=== PATIENT | female | born 2000 | race American Indian/Alaskan Native ===

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

== ENCOUNTER 2020-11-02 11:18 | Inpatient (IN) | payer MEDICAID, OTHER ==
[2020-11-02] MEDS ORDERED: TERBUTALINE 1 MG/1 ML INJ SUB-Q PRN (12:00)
[2020-11-02] MEDS ORDERED: ePHEDrine SULFATE 50 MG/1 ML INJ IV PRN ×2 (12:00→14:43)
[2020-11-02] MEDS ORDERED: AMPICILLIN/NS 2 GM/100 ML 2 GM/100 ML BAG IV ONE (12:00)
[2020-11-02] MEDS ORDERED: OXYTOCIN DRIP 30 UNITS/500 ML BAG IV SCH ×2 (12:00→16:00)
[2020-11-02] MEDS ORDERED: LIDOCAINE (2%) 20 MG/1 ML VIAL 20 ML MDV INFILTRATI ONE (12:00)
[2020-11-02] MEDS ORDERED: LACTATED RINGERS 1,000 ML IV ONE (12:03)
--- NOTE | 2020-11-02 12:06 | History and Physical Report ---
History of Present Illness Date of examination: 11/02/20 Date of admission: 11/02/2020 Chief complaint: Contractions History of present illness: 20 year old presents to L&D with complaint of contractions since 04:00 this morning. Patient denies vaginal bleeding or leaking of fluid. Patient reports active movement. Patient states she received care in [place] and just moved to [place]; states her last visit was last week. No records are available but will request records. Patient reports her EDC is 11/19/2020. Patient reports that this started out as a twin but states that she lost one of the twins at 16 weeks gestation. She also reports a history of 4 first trimester miscarriages. Reports she had chlamydia early in this but states that it was treated and cured. Patient denies health problems. No current medications. No known drug allergies. Negative surgical history. Nonsmoker, nondrinker, denies drugs. Denies abuse. labs were drawn upon admission and ultrasound was ordered. 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 denies: abnormal PAP smear, gonorrhea, hepatitis B, hepatitis C, herpes, HIV, syphilis, trichomonas Family/Genetic History: diabetes, hypertension, cancer, Down's syndrome (aunt's child has Down syndrome) Social history: single, full code. denies: smoking, alcohol abuse, prescription drug abuse, IV drug use - Obstetrical History Expected Date of Delivery: 11/19/20 Actual Gestation: 37 Week(s) 4 Day(s) : 5 Para: 0 Hx # Term Pregnancies: 0 Number of Pregnancies: 0 Spontaneous Abortions: 4 Induced : 0 Number of Living Children: 0 Medications and Allergies Allergies Allergy/AdvReac Type Severity Reaction Status Date / Time No Known Allergies Allergy Verified 05/13/18 20:19 Home Medications Medication Instructions Recorded Confirmed Last Taken Type HYDROcodone/APAP 5-325 [[place] 1 each PO Q6HR PRN #12 tablet 05/14/18 Unknown Rx 5/325] Nitrofurantoin Monohyd/M-Cryst 100 mg PO BID #14 capsule 05/14/18 Unknown Rx [Macrobid 100 mg Capsule] Active Meds: Active Medications Ephedrine Sulfate (Ephedrine Sulfate 50 Mg/1 Ml Inj) 10 mg IV Q2M PRN PRN Reason: Hypotension Lactated Ringer's (Lactated Ringers) 1,000 mls @ 125 mls/hr IV DIRECT [place] Oxytocin/Sodium Chloride (Pitocin/Ns 30 Unit/500ml) 30 units in 500 mls @ 40 mls/hr IV TITR [place]; Protocol Ampicillin Sodium (Ampicillin/Ns 2 Gm/100 Ml) 2 gm in 100 mls @ 100 mls/hr IV ONCE ONE; Protocol Stop: 11/02/20 12:59 Ampicillin Sodium (Ampicillin/Ns 1 Gm/50 Ml) 1 gm in 50 mls @ 100 mls/hr IV Q4H [place]; Protocol Lactated Ringer's (Lactated Ringers) 1,000 mls @ 999 mls/hr IV BOLUS ONE Stop: 11/02/20 13:03 Terbutaline Sulfate (Terbutaline 1 Mg/1 Ml Inj) 0.25 mg SUB-Q ONCE PRN PRN Reason: Hyperstimulation/Hypertonicity Review of Systems All systems: negative (contractions) - Vital Signs Vital signs: Vital Signs Temp Pulse Resp BP Pulse Ox 98.8 F 95 H 20 115/67 98 11/02/20 11:24 11/02/20 11:24 11/02/20 11:24 11/02/20 11:24 11/02/20 11:24 Temp Pulse Resp BP Pulse Ox 98.8 F 105 H 20 115/67 100 11/02/20 11:24 11/02/20 12:05 11/02/20 11:24 11/02/20 11:25 11/02/20 12:05 - Physical Exam Abdomen: Positive: normal appearance, soft. Negative: distention, tenderness, guarding, rigidity Genitourinary (Female): Positive: normal external genitalia, normal perenium. N egative: perineal/vulvar lesions Vagina: Positive: normal moisture Uterus: Positive: enlarged. Negative: tender Anus/Rectum: Positive: normal perianal skin Extremities: Positive: normal. Negative: tenderness, edema - Obstetrical FHR: category 2 Uterine Contraction Monitor Mode: External Cervical Dilatation: 4.5 Cervical Effacement Percentage: 70 station: -2 Uterine Contraction Pattern: Regular Uterine Contraction Intensity: Moderate Results All other labs normal. Assessment and Plan A: at 37 weeks, 4 days gestation. Active labor. GBS unknonwn. No records available. P: Admit. Continuous EFM. labs, ultrasound (for EGA/EDC and location/integrity of placenta), drug screen. Request records from [place]. GBS prophylaxis. Anticipate vaginal .
[2020-11-02] MEDS ORDERED: fentaNYL 100 MCG/2 ML INJ IV ONE (13:04)
[2020-11-02] MEDS ORDERED: fentaNYL 100 MCG/2 ML INJ ONE (13:08)
[2020-11-02 13:59] LABS: Hematocrit 37.9 % (30.3-42.9); Hemoglobin 13.1 gm/dl (10.1-14.3); Mean Corpuscular HGB Conc 35 % (30-34); Mean Corpuscular Volume 86 fl (79-97); Platelet Count 199 K/mm3 (140-440); Red Blood Count 4.38 M/mm3 (3.65-5.03); Red Cell Distribution Width 13.4 % (13.2-15.2)
[2020-11-02 14:04] LABS: Hepatitis C Virus Antibody Non-Reactive (NonReactive)
[2020-11-02] MEDS ORDERED: NALOXONE 2 MG/2 ML INJ IV PRN (14:43)
--- NOTE | 2020-11-02 14:45 | Anesthesia Consultation ---
Anesthesia Consult and Med Hx Date of service: 11/02/20 - Airway Anesthetic Teeth Evaluation: Good ROM Head & Neck: Adequate Mental/Hyoid Distance: Adequate Mallampati Class: Class II Intubation Access Assessment: Probably Good - Pulmonary Exam CTA: Yes - Cardiac Exam Cardiac Exam: RRR - Pre-Operative Health Status ASA Pre-Surgery Classification: ASA2 Proposed Anesthetic Plan: Epidural - Pulmonary Hx Asthma: Yes (INHALER/ALBUTEROL, ATTACK A MONTH OR 2 AGO) - Cardiovascular System Hx Hypertension: No - Central Nervous System Hx Seizures: No Hx Psychiatric Problems: No - Endocrine Hx Renal Disease: No Hx Hypothyroidism: No Hx Hyperthyroidism: No - Hematic Hx Sickle Cell Disease: No - Other Systems Hx Alcohol Use: No
--- NOTE | 2020-11-02 14:59 | Progress Note ---
Subjective - Subjective Date of service: 11/02/20 Interval history: late entry SROM clear at 14:00 [id number]%/-1 [place]: Q2 minutes FHT 150 baseline, minimal variability,+ve variables [facility] anesthesia notified for epidural Mackenzie Pichardo MD Objective - Vital Signs Vital Signs: Vital Signs - 12hr 11/02/20 11/02/20 11/02/20 11:24 11:25 11:27 Temperature 98.8 F Pulse Rate 95 H 96 H 83 Respiratory 20 Rate Blood Pressure 115/67 Blood Pressure 115/67 [Right] O2 Sat by Pulse 98 97 Oximetry 11/02/20 11/02/20 11/02/20 11:32 11:37 11:50 Temperature Pulse Rate 92 H 87 97 H Respiratory Rate Blood Pressure Blood Pressure [Right] O2 Sat by Pulse 98 99 99 Oximetry 11/02/20 11/02/20 11/02/20 11:55 12:00 12:05 Temperature Pulse Rate 110 H 101 H 105 H Respiratory Rate Blood Pressure Blood Pressure [Right] O2 Sat by Pulse 100 99 100 Oximetry 11/02/20 11/02/20 11/02/20 12:10 12:15 12:20 Temperature Pulse Rate 98 H 114 H 74 Respiratory Rate Blood Pressure Blood Pressure [Right] O2 Sat by Pulse 97 100 99 Oximetry 11/02/20 11/02/20 11/02/20 12:25 12:30 12:35 Temperature Pulse Rate 109 H 102 H 98 H Respiratory Rate Blood Pressure Blood Pressure [Right] O2 Sat by Pulse 96 100 99 Oximetry 11/02/20 11/02/20 11/02/20 12:40 12:45 12:55 Temperature Pulse Rate 111 H 90 105 H Respiratory Rate Blood Pressure Blood Pressure [Right] O2 Sat by Pulse 99 100 100 Oximetry 11/02/20 11/02/20 11/02/20 12:56 13:00 13:05 Temperature Pulse Rate 100 H 120 H 112 H Respiratory Rate Blood Pressure 119/70 Blood Pressure [Right] O2 Sat by Pulse 100 100 Oximetry 11/02/20 11/02/20 11/02/20 13:10 13:14 13:15 Temperature Pulse Rate 129 H 116 H 125 H Respiratory Rate Blood Pressure 140/75 Blood Pressure [Right] O2 Sat by Pulse 100 100 Oximetry 11/02/20 11/02/20 11/02/20 13:20 13:25 13:30 Temperature Pulse Rate 118 H 119 H 103 H Respiratory Rate Blood Pressure Blood Pressure [Right] O2 Sat by Pulse 100 99 100 Oximetry 11/02/20 11/02/20 11/02/20 13:35 13:39 13:40 Temperature Pulse Rate 115 H 115 H 117 H Respiratory Rate Blood Pressure 148/94 Blood Pressure [Right] O2 Sat by Pulse 100 100 Oximetry 11/02/20 11/02/20 11/02/20 13:45 13:50 13:55 Temperature Pulse Rate 119 H 115 H 104 H Respiratory Rate Blood Pressure Blood Pressure [Right] O2 Sat by Pulse 100 100 100 Oximetry 11/02/20 11/02/20 11/02/20 14:00 14:05 14:10 Temperature Pulse Rate 114 H 119 H 114 H Respiratory Rate Blood Pressure Blood Pressure [Right] O2 Sat by Pulse 98 100 99 Oximetry 11/02/20 11/02/20 11/02/20 14:15 14:18 14:20 Temperature Pulse Rate 108 H 115 H Respiratory Rate Blood Pressure Blood Pressure [Right] O2 Sat by Pulse 93 79 L 100 Oximetry 11/02/20 11/02/20 11/02/20 14:23 14:25 14:30 Temperature Pulse Rate 60 129 H 107 H Respiratory Rate Blood Pressure Blood Pressure [Right] O2 Sat by Pulse 87 100 100 Oximetry 11/02/20 11/02/20 11/02/20 14:35 14:40 14:45 Temperature Pulse Rate 117 H 132 H 118 H Respiratory Rate Blood Pressure Blood Pressure [Right] O2 Sat by Pulse 100 100 100 Oximetry 11/02/20 11/02/20 11/02/20 14:46 14:50 14:52 Temperature Pulse Rate 134 H 127 H 131 H Respiratory Rate Blood Pressure 131/97 Blood Pressure [Right] O2 Sat by Pulse 94 97 Oximetry 11/02/20 14:54 Temperature Pulse Rate 122 H Respiratory Rate Blood Pressure 148/59 Blood Pressure [Right] O2 Sat by Pulse Oximetry - Labs Labs: Abnormal Labs 11/02/20 12:50 WBC 12.3 H MCHC 35 H Laboratory Results - last 24 hr 11/02/20 11/02/20 11/02/20 12:50 12:50 12:50 WBC 12.3 H RBC 4.38 Hgb 13.1 Hct 37.9 MCV 86 MCH 30 MCHC 35 H RDW 13.4 Plt Count 199 Hemoglobin A1c Syphilis IgG Antibody Nonreactive Hep Bs Antigen Hepatitis C Antibody Non-reactive HIV 1&2 Antibody Rapid HIV P24 Antigen Rubella IgG Antibody Immune Blood Type O POSITIVE 11/02/20 11/02/20 11/02/20 12:50 12:50 12:50 WBC RBC Hgb Hct MCV MCH MCHC RDW Plt Count Hemoglobin A1c 5.1 Syphilis IgG Antibody Hep Bs Antigen Non-reactive Hepatitis C Antibody HIV 1&2 Antibody Rapid Non react HIV P24 Antigen Non react Rubella IgG Antibody Blood Type
[2020-11-02] MEDS ORDERED: fentaNYL-BUPIV 2 MCG/ML-0.125% 200 MCG/100 ML BAG EPIDURAL SCH (15:00)
--- NOTE | 2020-11-02 15:05 | Event Note ---
Date: 11/09/20 Patient had variable FHR deceleration with slow return to baseline just prior to being moved to labor room 2007 at 12:52. Spoke to Dr. Pichardo at 12:52 re: FHR tracing, SVE, pt. complaints. Dr. Pichardo came in and examined patient and ruptured her membranes. Patient is now receiving epidural. Maternal and tachycardia and elevated maternal BP. Orders for CMP, LDH, uric acid put in. Urinalysis and urine drug screen pending. Dr. Pichardo is present in L&D viewing FHR tracing. She states she will re-examine patient after epidural.
--- NOTE | 2020-11-02 15:10 | Progress Note ---
Labor Epidural - Labor Epidural Start Time: 14:55 Stop Time: 15:07 Performed by:: ALEJANDRO CLARK Procedure: Patient is requesting epidural for labor pain. H&P, and labs reviewed. Procedure explained, questions answered, consent obtained. Patient in sitting position with blood pressure cuff and pulse ox on and working. Timeout performed immediately before start of procedure. Sterile chlorahexadine 0.5% prep/drape. 3 mL 1% lidocaine skin wheal at L[3]-L[4]. 18-gauge Tuohy epidural needle advanced to [id number] with saline at [7] cm. Epidural catheter advanced to [12] cm, negative aspiration for blood and csf, negative test dose 3 ml 1.5% lidocaine with epinephrine. Epidural dexmedetomidine [30] mcg administered. Sterile steri-strips and tegaderm applied, followed by tape reinforcement. Patient tolerated procedure well. Alejandro CASTELLANO
[2020-11-02] MEDS ORDERED: LIDOCAINE 2%/EPINEPHRINE 1:200,000 VIAL (20 ML) INFILTRATI ONE (15:18)
[2020-11-02] MEDS ORDERED: dexAMETHasone 20 MG/5 ML VIAL ONE (15:20)
[2020-11-02] MEDS ORDERED: BUPIVACAINE/PF (0.5%) 5 MG/1 ML 30 ML VIAL INFILTRATI ONE (15:20)
[2020-11-02] MEDS ORDERED: KETOROLAC 30 MG/1 ML INJ ONE (15:20)
--- NOTE | 2020-11-02 15:20 | Progress Note ---
Subjective - Subjective Date of service: 11/02/20 Interval history: SP epidural persistent minimal variability with repetitive variables cervix 5cm/90/-2 plan for operative delivery for non reassuring heart tones Mackenzie Pichardo MD Objective - Vital Signs Vital Signs: Vital Signs - 12hr 11/02/20 11/02/20 11/02/20 11:24 11:25 11:27 Temperature 98.8 F Pulse Rate 95 H 96 H 83 Respiratory 20 Rate Blood Pressure 115/67 Blood Pressure 115/67 [Right] O2 Sat by Pulse 98 97 Oximetry 11/02/20 11/02/20 11/02/20 11:32 11:37 11:50 Temperature Pulse Rate 92 H 87 97 H Respiratory Rate Blood Pressure Blood Pressure [Right] O2 Sat by Pulse 98 99 99 Oximetry 11/02/20 11/02/20 11/02/20 11:55 12:00 12:05 Temperature Pulse Rate 110 H 101 H 105 H Respiratory Rate Blood Pressure Blood Pressure [Right] O2 Sat by Pulse 100 99 100 Oximetry 11/02/20 11/02/20 11/02/20 12:10 12:15 12:20 Temperature Pulse Rate 98 H 114 H 74 Respiratory Rate Blood Pressure Blood Pressure [Right] O2 Sat by Pulse 97 100 99 Oximetry 11/02/20 11/02/20 11/02/20 12:25 12:30 12:35 Temperature Pulse Rate 109 H 102 H 98 H Respiratory Rate Blood Pressure Blood Pressure [Right] O2 Sat by Pulse 96 100 99 Oximetry 11/02/20 11/02/20 11/02/20 12:40 12:45 12:55 Temperature Pulse Rate 111 H 90 105 H Respiratory Rate Blood Pressure Blood Pressure [Right] O2 Sat by Pulse 99 100 100 Oximetry 11/02/20 11/02/20 11/02/20 12:56 13:00 13:05 Temperature Pulse Rate 100 H 120 H 112 H Respiratory Rate Blood Pressure 119/70 Blood Pressure [Right] O2 Sat by Pulse 100 100 Oximetry 11/02/20 11/02/20 11/02/20 13:10 13:14 13:15 Temperature Pulse Rate 129 H 116 H 125 H Respiratory Rate Blood Pressure 140/75 Blood Pressure [Right] O2 Sat by Pulse 100 100 Oximetry 11/02/20 11/02/20 11/02/20 13:20 13:25 13:30 Temperature Pulse Rate 118 H 119 H 103 H Respiratory Rate Blood Pressure Blood Pressure [Right] O2 Sat by Pulse 100 99 100 Oximetry 11/02/20 11/02/20 11/02/20 13:35 13:39 13:40 Temperature Pulse Rate 115 H 115 H 117 H Respiratory Rate Blood Pressure 148/94 Blood Pressure [Right] O2 Sat by Pulse 100 100 Oximetry 11/02/20 11/02/20 11/02/20 13:45 13:50 13:55 Temperature Pulse Rate 119 H 115 H 104 H Respiratory Rate Blood Pressure Blood Pressure [Right] O2 Sat by Pulse 100 100 100 Oximetry 11/02/20 11/02/20 11/02/20 14:00 14:05 14:10 Temperature Pulse Rate 114 H 119 H 114 H Respiratory Rate Blood Pressure Blood Pressure [Right] O2 Sat by Pulse 98 100 99 Oximetry 11/02/20 11/02/20 11/02/20 14:15 14:18 14:20 Temperature Pulse Rate 108 H 115 H Respiratory Rate Blood Pressure Blood Pressure [Right] O2 Sat by Pulse 93 79 L 100 Oximetry 11/02/20 11/02/20 11/02/20 14:23 14:25 14:30 Temperature Pulse Rate 60 129 H 107 H Respiratory Rate Blood Pressure Blood Pressure [Right] O2 Sat by Pulse 87 100 100 Oximetry 11/02/20 11/02/20 11/02/20 14:35 14:40 14:45 Temperature Pulse Rate 117 H 132 H 118 H Respiratory Rate Blood Pressure Blood Pressure [Right] O2 Sat by Pulse 100 100 100 Oximetry 11/02/20 11/02/20 11/02/20 14:46 14:50 14:52 Temperature Pulse Rate 134 H 127 H 131 H Respiratory Rate Blood Pressure 131/97 Blood Pressure [Right] O2 Sat by Pulse 94 97 Oximetry 11/02/20 11/02/20 11/02/20 14:54 14:56 14:57 Temperature Pulse Rate 122 H 131 H 131 H Respiratory Rate Blood Pressure 148/59 126/72 Blood Pressure [Right] O2 Sat by Pulse 99 Oximetry 11/02/20 11/02/20 11/02/20 14:59 15:00 15:01 Temperature Pulse Rate 137 H 136 H 122 H Respiratory Rate Blood Pressure 125/80 134/70 Blood Pressure [Right] O2 Sat by Pulse 93 Oximetry 11/02/20 11/02/2011/02/21 15:02 15:03 15:06 Temperature Pulse Rate 77 127 H 127 H Respiratory Rate Blood Pressure 151/65 168/61 Blood Pressure [Right] O2 Sat by Pulse 95 Oximetry 11/02/20 11/02/20 11/02/20 15:07 15:10 15:11 Temperature Pulse Rate 118 H 123 H 122 H Respiratory Rate Blood Pressure 123/56 117/54 122/56 Blood Pressure [Right] O2 Sat by Pulse 98 Oximetry 11/02/20 11/02/20 11/02/20 15:12 15:13 15:15 Temperature Pulse Rate 121 H 110 H 111 H Respiratory Rate Blood Pressure 104/55 109/54 Blood Pressure [Right] O2 Sat by Pulse 100 Oximetry 11/02/20 15:17 Temperature Pulse Rate 117 H Respiratory Rate Blood Pressure 100/49 Blood Pressure [Right] O2 Sat by Pulse 99 Oximetry - Labs Labs: Abnormal Labs 11/02/20 12:50 WBC 12.3 H MCHC 35 H Laboratory Results - last 24 hr 11/02/20 11/02/20 11/02/20 12:50 12:50 12:50 WBC 12.3 H RBC 4.38 Hgb 13.1 Hct 37.9 MCV 86 MCH 30 MCHC 35 H RDW 13.4 Plt Count 199 Hemoglobin A1c Syphilis IgG Antibody Nonreactive Hep Bs Antigen Hepatitis C Antibody Non-reactive HIV 1&2 Antibody Rapid HIV P24 Antigen Rubella IgG Antibody Immune Blood Type O POSITIVE Antibody Screen Negative 11/02/20 11/02/20 11/02/20 12:50 12:50 12:50 WBC RBC Hgb Hct MCV MCH MCHC RDW Plt Count Hemoglobin A1c 5.1 Syphilis IgG Antibody Hep Bs Antigen Non-reactive Hepatitis C Antibody HIV 1&2 Antibody Rapid Non react HIV P24 Antigen Non react Rubella IgG Antibody Blood Type Antibody Screen
[2020-11-02] MEDS ORDERED: METOCLOPRAMIDE 10 MG/2 ML INJ IV ONE (15:21)
[2020-11-02] MEDS ORDERED: FAMOTIDINE 20 MG/2 ML INJ IV ONE (15:21)
[2020-11-02] MEDS ORDERED: BICITRA ORAL LIQD 30ML PO ONE (15:21)
[2020-11-02] MEDS ORDERED: LACTATED RINGERS 1,000 ML IV SCH (15:30)
--- NOTE | 2020-11-02 15:33 | Procedure Note ---
OB Delivery Note - Delivery Date of Delivery: 11/02/20 Surgeon: EVE DELVALLE Estimated blood loss: 500cc - Section Preop diagnosis: nonreassuring FHR tracing Postop diagnosis: same section procedure: primary low transverse Disposition: PACU Complications: none Narrative: Preop diagnosis: IUP at 37.5weeks, nonreassuring heart tracing Postop diagnosis: Same Procedure: Primary low transverse section via Pfannenstiel incision Surgeon: Dr. Eve Delvalle Anesthesia spinal Complications none EBL 500ml IV fluids 800mL Urine output 200mL, clear Drains Johnson to gravity Findings: Viable male with weight 2875gms and 8/9, normal uterus tubes and ovaries bilaterally Procedure: Patient was consented in 2007, taken to the operating room for operative delivery. She was then placed in the dorsal supine position with a leftward tilt. The abdomen was prepped and draped in a sterile fashion, and a timeout was verified. Adequate anesthesia was confirmed prior to the skin incision. A Pfannenstiel skin incision was made with a scalpel taken down to the underlying structures and the fascia was incised in the midline. The incision was extended laterally with curved Horta scissors, the superior and inferior aspects of the fascial incisions were grasped with Saul clamps and the rectus muscles dissected sharply. The abdomen was entered bluntly in the midline carried down inferiorly with good visualization of the bladder. The vesicouterine peritoneum was tented with [place] forceps and incised in the midline with Metzenbaum scissors and the vesicouterine peritoneum taken down sharply. Bladder blade was inserted, the uterine incision was made sharply with a scalpel. The inferior and superior aspect of the uterine incisions were extended bluntly, the baby's head was delivered atraumatically. The remainder of the delivery was uncomplicated a loose nuchal cord was reduced after delivery. The cord was clamped and cut and baby handed to waiting NICU team. An intact placenta with three-vessel cord delivered manually. The uterus was then cleared of all clots and debris and the uterus exteriorized. The uterine incision was closed with 2 layers of 0 chromic with excellent hemostasis. The abdomen was then irrigated with warm normal saline and the uterus placed back into the abdomen atraumatically. A second look at the uterine incision assured hemostasis. The peritoneum was closed with 3-0 Vicryl, the rectus muscles approximated with 3-0 Vicryl, and the fascia closed with 0 Vicryl in the usual fashion. The subcuticular structures were closed with interrupted sutures of 3- 0 Vicryl and the skin closed with 4-0 Monocryl. A pressure dressing was applied. All sponge needle and instrument counts were correct x2. There were no complications. Mom and baby stable to PACU. EBL 500mL Mackenzie Delvalle MD
[2020-11-02 15:49] LABS: Amphetamine Screen,Urine PRESUMPTIVE NEGATIVE; Benzodiazepines Screen,Urine PRESUMPTIVE NEGATIVE; Bilirubin,Urine NEG (Negative); Blood,Urine NEG (Negative); Cannabinoid Screen,Urine PRESUMPTIVE POSITIVE; Cocaine Screen,Urine PRESUMPTIVE NEGATIVE; Color,Urine Yellow (Yellow); Methadone Screen,Urine PRESUMPTIVE NEGATIVE; Mucus,Urine FEW /HPF; Opiate Screen,Urine PRESUMPTIVE NEGATIVE; Protein,Urine <15 mg/dL mg/dL (Negative); Urobilinogen,Urine < 2.0 mg/dL (<2.0)
[2020-11-02] MEDS ORDERED: PHENYLEPHRINE/NS 1,000 MCG/10 ML SYRINGE (OR USE) IV ONE (16:00)
[2020-11-02] MEDS ORDERED: ceFAZolin/Water 2 GM/20 ML 2 GM/20 ML SYRINGE IV NR (16:00)
[2020-11-02] MEDS ORDERED: OXYTOCIN 10 UNIT/1 ML INJ ONE (16:25)
[2020-11-02 16:27] LABS: Alanine Aminotransferase 14 units/L (7-56); Blood Urea Nitrogen 5 mg/dL (7-17); Calcium 9.3 mg/dL (8.4-10.2); Hemolysis Index 9; Uric Acid 6.3 mg/dL (3.5-7.6)
[2020-11-02 16:32] LABS: BUN/Creatinine Ratio 10
[2020-11-02] MEDS ORDERED: AMPICILLIN/NS 1 GM/50 ML 1 GM/50 ML BAG IV SCH (17:00)
--- NOTE | 2020-11-02 17:08 | Progress Note ---
Labor Epidural - Labor Epidural Start Time: 17:05 Stop Time: 17:08 Performed by:: ALEJANDRO CLARK Procedure: U/S guided bilateral tap block performed for post-operative pain requested by Dr. Pichardo. H&P & labs reviewed. Procedure explained, questions answered, consent obtained. Patient in the supine position with ekg, blood pressure cuff and pulse ox on and working in PACU. Timeout performed immediately before start of procedure. Probe placed in the mid-axillary line and the external oblique, internal oblique, and transverse abdominus muscles identified. Skin was cleansed with chlorahexadine 0.5% and allowed to dry. A 4" 20 G Ledezma echogenic needle was advanced in plane until the tip was in the fascial plane between the internal oblique and the transverse abdominus. After negative aspiration 35 ml/side of [30 ml 0.5% Bupivacaine], [10 mg dexamethasone], and [40 ml sterile saline] was injected in 5 ml increments with negative aspiration in between. Patient tolerated procedure well. Alejandro CASTELLANO
[2020-11-02] MEDS: LACTATED RINGERS 1,000 ML IV SCH (18:23)
[2020-11-02] MEDS: oxyCODONE /ACETAMINOPHEN 5-325MG TAB PO PRN (21:05)
[2020-11-03] MEDS: IBUPROFEN 600 MG TAB PO PRN ×3 (01:48→18:22)
[2020-11-03] MEDS: LACTATED RINGERS 1,000 ML IV SCH (03:48)
[2020-11-03] MEDS: oxyCODONE /ACETAMINOPHEN 5-325MG TAB PO PRN ×3 (06:14→21:32)
[2020-11-03 06:51] LABS: Hematocrit 34.3 % (30.3-42.9); Hemoglobin 11.6 gm/dl (10.1-14.3)
--- NOTE | 2020-11-03 08:59 | Post Anesthesia Evaluation ---
- Post Anesthesia Evaluation Patient Participated: Yes Airway Patent: Yes Stable Respiratory Function: Yes Nausea/Vomiting: No Temp > 96.8F: Yes Pain Manageable: Yes Adequeate Hydration: Yes Anesthesia Complications: No Block Receding Appropriately: Yes Patient on Ventilator: No
--- NOTE | 2020-11-03 10:22 | Progress Note ---
Assessment and Plan A: POD #1 STable P: Follow Routine PostOp Orders Encourage increased ambulation Subjective - Subjective Date of service: 11/03/20 Patient reports: appetite normal, voiding normally, pain well controlled, flatus, ambulating normally [place]: in NICU, bottle feeding Objective - Vital Signs Latest vital signs: Vital Signs Temp Pulse Resp BP BP Pulse Ox 11/03/20 08:46 97.8 F 74 18 107/72 99 11/03/20 06:14 14 11/03/20 04:55 98.3 F 97 H 20 104/72 63 L 11/03/20 01:48 14 11/02/20 23:55 98.2 F 77 20 119/78 98 11/02/20 21:05 14 11/02/20 18:53 98.8 F 97 H 18 126/76 100 11/02/20 17:50 98.8 F 98 H 19 110/69 99 11/02/20 17:35 104 H 18 107/57 98 11/02/20 17:20 105 H 26 H 97/58 99 11/02/20 17:05 102 H 24 91/45 98 11/02/20 17:00 101 H 23 104/41 100 11/02/20 16:55 98.5 F 99 H 19 85/37 100 11/02/20 15:52 125 H 100 11/02/20 15:51 111 H 100/54 11/02/20 15:49 127 H 103/55 11/02/20 15:47 120 H 129/69 99 11/02/20 15:45 108 H 115/65 11/02/20 15:43 113 H 112/68 11/02/20 15:42 106 H 100 11/02/20 15:41 125 H 110/67 11/02/20 15:39 113 H 106/62 11/02/20 15:37 109 H 100/63 97 11/02/20 15:35 113 H 93/53 92 11/02/20 15:33 109 H 99/56 11/02/20 15:32 110 H 100 11/02/20 15:31 108 H 106/57 11/02/20 15:30 121 H 119/80 90 11/02/20 15:27 116 H 104/58 100 11/02/20 15:25 110 H 111/64 11/02/20 15:24 114 H 93 11/02/20 15:22 105 H 97 11/02/20 15:21 113 H 108/51 11/02/20 15:19 108 H 109/52 11/02/20 15:17 117 H 100/49 99 11/02/20 15:15 111 H 109/54 11/02/20 15:13 110 H 104/55 11/02/20 15:12 121 H 100 11/02/20 15:11 122 H 122/56 11/02/20 15:10 123 H 117/54 11/02/20 15:07 118 H 123/56 98 11/02/20 15:06 127 H 168/61 11/02/20 15:03 127 H 151/65 11/02/20 15:02 77 95 11/02/20 15:01 122 H 134/70 11/02/20 15:00 136 H 93 11/02/20 14:59 137 H 125/80 11/02/20 14:57 131 H 126/72 11/02/20 14:56 131 H 99 11/02/20 14:54 122 H 148/59 11/02/20 14:52 131 H 131/97 11/02/20 14:50 127 H 97 11/02/20 14:46 134 H 94 11/02/20 14:45 118 H 100 11/02/20 14:40 132 H 100 11/02/20 14:35 117 H 100 11/02/20 14:30 107 H 100 11/02/20 14:25 129 H 100 11/02/20 14:23 60 87 11/02/20 14:20 115 H 100 11/02/20 14:18 79 L 11/02/20 14:15 108 H 93 11/02/20 14:10 114 H 99 11/02/20 14:05 119 H 100 11/02/20 14:00 114 H 98 11/02/20 13:55 104 H 100 11/02/20 13:50 115 H 100 11/02/20 13:45 119 H 100 11/02/20 13:40 117 H 100 11/02/20 13:39 115 H 148/94 11/02/20 13:35 115 H 100 11/02/20 13:30 103 H 100 11/02/20 13:25 119 H 99 11/02/20 13:20 118 H 100 11/02/20 13:15 125 H 100 11/02/20 13:14 116 H 140/75 11/02/20 13:10 129 H 100 11/02/20 13:05 112 H 100 11/02/20 13:00 120 H 100 11/02/20 12:56 100 H 119/70 11/02/20 12:55 105 H 100 11/02/20 12:45 90 100 11/02/20 12:40 111 H 99 11/02/20 12:35 98 H 99 11/02/20 12:30 102 H 100 11/02/20 12:25 109 H 96 11/02/20 12:20 74 99 11/02/20 12:15 114 H 100 11/02/20 12:10 98 H 97 11/02/20 12:05 105 H 100 11/02/20 12:00 101 H 99 11/02/20 11:55 110 H 100 11/02/20 11:50 97 H 99 11/02/20 11:37 87 99 11/02/20 11:32 92 H 98 11/02/20 11:27 83 97 11/02/20 11:25 96 H 115/67 11/02/20 11:24 98.8 F 95 H 20 115/67 98 Intake and Output 11/02/20 11/03/20 11/03/20 22:59 06:59 14:59 Intake Total 1400 1600 320 Output Total 760 1400 1000 Balance 640 200 -680 Intake: IV 1400 1000 Lactated Ringers 1,000 ml 1000 @ 125 mls/hr IV DIRECT [place] Rx#:[id number] Oral 320 Intake, Free Water 600 Output: Urine 760 1400 1000 Indwelling Catheter 400 1400 Uretheral (Johnson) 10 Void 1000 Other: Total, Intake Amount 320 Total, Output Amount 400 1400 700 - Exam Breasts: Present: normal Cardiovascular: Present: Regular rate Lungs: Present: Clear to auscultation, Normal air movement Abdomen: Present: normal appearance, soft, normal bowel sounds Uterus: Present: normal, firm, fundal height below umbilicus Extremities: Present: normal Incision: Present: dry, dressed - Labs Labs: Abnormal lab results 11/02/20 11/02/20 Range/Units 12:50 15:44 WBC 12.3 H (4.5-11.0) K/mm3 MCHC 35 H (30-34) % Sodium 135 L (137-145) mmol/L Carbon Dioxide 16 L (22-30) mmol/L BUN 5 L (7-17) mg/dL Creatinine 0.5 L (0.6-1.2) mg/dL Alkaline Phosphatase 223 H (35-129) units/L Lactate Dehydrogenase 211 H (91-180) units/L Albumin 3.0 L (3.9-5) g/dL
[2020-11-04] MEDS: IBUPROFEN 600 MG TAB PO PRN ×4 (02:07→23:58)
[2020-11-04] MEDS: oxyCODONE /ACETAMINOPHEN 5-325MG TAB PO PRN ×3 (06:10→20:19)
--- NOTE | 2020-11-04 09:25 | Progress Note ---
Assessment and Plan A: S/P LTCS p: Continue routine pp care Encourage ambulation D/C home tomm if stable Subjective - Subjective Date of service: 11/04/20 Principal diagnosis: s/p primary LTCS Patient reports: appetite normal, voiding normally, pain well controlled, flatus, ambulating normally, other (Pt was talking and laughing. She denied c/o depression or feeling sad.) [place]: doing well, bottle feeding Objective - Vital Signs Latest vital signs: Vital Signs Temp Pulse Resp BP BP Pulse Ox 11/04/20 07:53 98.1 F 88 20 99/57 98 11/04/20 07:02 18 11/04/20 06:10 18 11/04/20 03:07 18 11/04/20 02:07 18 11/04/20 01:19 97.7 F 87 18 107/58 98 11/03/20 22:32 18 11/03/20 21:32 18 11/03/20 19:22 18 11/03/20 18:18 98.7 F 97 H 18 106/60 99 11/03/20 17:28 98.3 F 93 H 19 104/60 98 Intake and Output 11/03/20 11/04/20 11/04/20 22:59 06:59 14:59 Intake Total 640 240 Output Total 1100 Balance -460 240 Intake: Oral 540 240 Intake, Free Water 100 Output: Urine 1100 Void 1100 Other: Total, Intake Amount 240 240 Total, Output Amount 500 # Voids Void 1 1 - Exam Breasts: Present: normal Abdomen: Present: normal appearance, soft, normal bowel sounds Vulva: both: normal Uterus: Present: normal, firm, fundal height below umbilicus Extremities: Present: normal Incision: Present: normal, dry, intact, dressed
--- NOTE | 2020-11-04 09:30 | Discharge Summary ---
Providers - Providers Date of Admission: 11/02/20 12:00 Date of discharge: 11/05/20 Attending physician: EVE DELVALLE MD 11/02/20 17:25 Consult to Case Management [CONS] Routine Services Needed at Discharge: Hi Lo Driver Notified:: computer input Phone number called:: [phone] Was contact made?: No Time called:: 19:00 Comment:: computer input Additional Physician Instructions: Assess living situation /resour dominic/support system 11/03/20 10:00 Consult to Logging Contractor [CONS] Routine Reason For Exam: assist with Primary care physician: CNC GRINDER Hospitalization Reason for admission: active labor Delivery: Procedure: primary low transverse Episiotomy: none Laceration: none Incision: normal, intact, dressed Other procedures: none complications: none Discharge diagnosis: IUP at term delivered [facility] baby: male Hospital course: Pt was admitted to [facility] in active labor.She underwent a primary LTCS and had no pp complications. See H&P, delivery summary and pp notes. Condition at discharge: Stable Disposition: DC-01 TO HOME OR SELFCARE Plan - Discharge Medications Prescriptions: Ibuprofen [Motrin] 600 mg PO Q8H PRN #60 tablet PRN Reason: Pain oxyCODONE /ACETAMINOPHEN [Percocet 5/325] 1 tab PO Q6HR PRN #20 tablet PRN Reason: Pain - Provider Discharge Summary Additional instructions: [] Smoking cessation referral if applicable(refer to patient education folder for contact #) [] Refer to [facility]'s [facility] Booklet Call your doctor immediately for: * Fever > 100.5 * Heavy vaginal bleeding ( >1 pad per hour) * Severe persistent headache * Shortness of breath * Reddened, hot, painful area to leg or breast * Drainage or odor from incision. * Keep incision clean and dry at all times and follow doctor's instructions regarding bathing/showering - Follow up plan Follow up: CECILIA DAWSON MD [Primary Care Provider] - 14 Days
[2020-11-05] MEDS: oxyCODONE /ACETAMINOPHEN 5-325MG TAB PO PRN (01:39)
[2020-11-05] MEDS: IBUPROFEN 600 MG TAB PO PRN (07:07)
[2020-11-05 14:56] VITALS: BP 110/63
== END 2020-11-05 14:32 | disposition home or self-care (01) | DRG 766 ==
LOC: TRG 11:18 → APU 11:20 → LD 12:00 → TRG 12:51 → OB 18:46
PROVIDERS: ADMIT Obstetrics & Gynecology; ATTEND Obstetrics & Gynecology
PROC: 10D00Z1 Extraction of Products of Conception, Low, Open Approach (ICD-10-PCS; principal; 2020-11-02)
DX: O76 Abnormality in fetal heart rate and rhythm complicating labor and delivery (principal); O99.52 Diseases of the respiratory system complicating childbirth; J45.909 Unspecified asthma, uncomplicated; Z20.822 Contact with and (suspected) exposure to COVID-19; Z3A.37 37 weeks gestation of pregnancy; Z37.0 Single live birth; Z82.49 Family history of ischemic heart disease and other diseases of the circulatory system; Z83.3 Family history of diabetes mellitus; Z84.89 Family history of other specified conditions
CPT/HCPCS: 36415; 80053; 80307; 81001; 83036; 83615; 84550; 85014; 85018; 85027; 86592; 86706; 86762; 86803; 86850; 86900; 86901; 87086; 87591; 87806; 88307; G0378; J0290; J1100; J1885; J2370; J2590; J2765; J3010; J7120; U0003